=== PATIENT | male | born 1935 | race Caucasian/White ===

== ENCOUNTER 2023-11-15 09:01 | Emergency (ER) | payer MEDICARE ==
[~2023-11-15] VITALS: Ht 152.4 cm; Wt 84.4 kg
[2023-11-15 09:14] VITALS: BP_SYST 126; PULSE 68; RESP 19; TEMP 99.3; O2SAT 98
[2023-11-15 09:37] LABS: HEMATOCRIT 42.5 % (36-54); HEMOGLOBIN 14.4 g/dL (14.0-18.0); MEAN CORPUSCULAR HEMOGLOBIN 33 pg (27-31); MEAN CORPUSCULAR HGB CONC 34 % (32-36); MEAN CORPUSCULAR VOLUME 97 fL (79.0-98.0); PLATELET COUNT (AUTO) 138 K/uL (130-430); RED CELL DISTRIBUTION WIDTH 12.9 % (9.0-15.0)
[2023-11-15 09:39] LABS: WHITE BLOOD COUNT (AUTO) 6.8 K/uL (4.8-10.8)
[2023-11-15 09:46] LABS: ANION GAP 10 (5-15); CALCIUM 8.7 mg/dL (8.4-11.0); CARBON DIOXIDE 28 mmol/L (23-29); CHLORIDE 101 mmol/L (98-107); CREATININE 1.22 mg/dL (0.55-1.30); GLUCOSE 114 mg/dL (74-106); POTASSIUM 3.5 mmol/L (3.5-5.1); SODIUM SERUM 139 mmol/L (136-145); UREA NITROGEN, BLOOD 21 mg/dL (8-21)
[2023-11-15 10:05] LABS: BASOPHILS % (MANUAL) 0 % (0-2); EOSINOPHILS % (MANUAL) 0 % (0-7); LYMPHOCYTES % (MANUAL) 5 % (20-46); MONOCYTES % (MANUAL) 16 % (0-11); PLATELET ESTIMATE ADEQUATE (ADEQUATE)
[2023-11-15 10:24] LABS: BILIRUBIN,URINE NEGATIVE (NEGATIVE); CLARITY/URINE CLEAR (CLEAR); COLOR,URINE YELLOW (YELLOW); GLUCOSE,URINE NEGATIVE (NEGATIVE); KETONES,URINE TRACE (NEGATIVE); LEUKOCYTE ESTERASE ,URINE NEGATIVE (NEGATIVE); NITRITE, URINE NEGATIVE (NEGATIVE); PROTEIN URINE 1+ (NEGATIVE); UROBILINOGEN,URINE 0.2 (0.2-1.0)
[2023-11-15 10:25] LABS: BLOOD, URINE TRACE (NEGATIVE)
[2023-11-15 10:35] VITALS: BP_SYST 126; PULSE 68; RESP 19; TEMP 99.3; O2SAT 96
[2023-11-15 10:40] LABS: BACTERIA,URINE None Seen /HPF (None Seen); HYALINE CASTS, URINE 0-1 /LPF (None Seen); MUCUS,URINE 1+ /LPF (None Seen); WBC,URINE 0-3 /HPF (0-3)
== END 2023-11-15 10:48 | disposition home or self-care (01) ==
LOC: SED 09:01 → EDSEX 09:01 → SED 10:48
DX: R41.82 Altered mental status, unspecified (principal); Z88.5 Allergy status to narcotic agent; Z79.899 Other long term (current) drug therapy
CPT/HCPCS: 36415; 71045; 80048; 81000; 81001; 81015; 85007; 85027; 99284